=== PATIENT | female | born 1970 | race Caucasian/White ===

== ENCOUNTER → 2023-01-25 13:02 | Outpatient (CLI) | payer BC, SELFPAY ==
--- NOTE | 2023-01-25 13:16 | MR_ITS ---
FINAL REPORT TECHNIQUE: Multiplanar MR, without and with gadolinium enhancement CLINICAL HISTORY: DIZZINESS AND GIDDINESS 16ml prohance injected FINDINGS: Diffusion sequences show no signal abnormality to indicate acute infarct. No mass, hemorrhage or edema is seen. Ventricles are normal. Major vascular flow voids are intact. Few scattered small white matter signal changes largest in the periventricular frontal lobe. Following contrast administration, no mass or abnormal enhancement is seen. IMPRESSION: Nonspecific white matter signal changes without evidence of acute infarct or mass. Reviewed, Interpreted and Dictated by Reinaldo Yeung MD Transcribed by Sheba Romero Authenticated and [facility]
== END ==
PROVIDERS: PCP Family Medicine; Visit Provider Nurse Practitioner Family
DX: R42 Dizziness and giddiness (principal)
CPT/HCPCS: 70553; A9576

== ENCOUNTER 2023-10-17 15:29 | Outpatient (CLI) | payer BC, SELFPAY ==
--- NOTE | 2023-10-17 15:38 | MR_ITS ---
FINAL REPORT CLINICAL HISTORY: LEFT ARM PAIN. SWELLING ANTERIOR/ MEDIAL SIDE OF ELBOW. SYMPTOMS [id number]. NO INJURY OR TRAUMA. COMPARISON: None FINDINGS: Multiplanar and multisequence imaging of the left elbow was obtained without contrast. BONES: There is no acute fracture, contusion or pathologic marrow replacement. Joint space is preserved. There is no joint effusion or loose body. LIGAMENTS: The radial collateral ligament and lateral ulnar collateral ligament are intact. The ulnar collateral ligament proper is intact and there is no fracture of the sublime tubercle. TENDON/MUSCLES: The common extensor tendon is normal in size and signal intensity at its insertion on the lateral epicondyle. The common flexor tendon is normal in size and signal intensity at its insertion on the medial epicondyle. The triceps tendon, biceps tendon, and brachialis tendon are intact and within normal limits. There is abnormal T2 signal intensity in the flexor digitorum superficialis muscle just distal to the common flexor tendon, which is nonspecific. OTHER SOFT TISSUES: There is no abnormal mass or fluid collection. The nerves and vascular structures appear normal. IMPRESSION: Nonspecific edema in the proximal flexor digitorum superficialis muscle. No ligament or tendon abnormality. Reviewed, Interpreted and Dictated by Steffanie Luna MD Transcribed by Shadia Qiu Authenticated and [facility]
== END 2023-10-17 23:59 ==
LOC: RAD 15:31
PROVIDERS: PCP Family Medicine; Visit Provider Family Medicine
DX: M79.602 Pain in left arm (principal)
CPT/HCPCS: 73221